=== PATIENT | male | born 2000 | race Caucasian/White ===

== ENCOUNTER 2019-12-11 08:42 | Emergency (ER) | payer BC, OTHER ==
[~2019-12-11] VITALS: Ht 185 cm; Wt 107.0 kg
--- NOTE | 2019-12-11 09:51 | Diagnostic Imaging Report ---
EXAMINATION: Right ankle at 9:27 AM INDICATION: Ankle pain 3 views were obtained. There are no prior studies available for comparison. There is a 2.8 x 8.1 cm area of irregularity involving the medial corner of the talar dome. This could be related to osteochondritis dissecans. This could also be a recent osteochondral injury. I would recommend that either CT or MRI be performed for further study. No other fracture or acute bony abnormality is appreciated. The lateral view does show a few small calcific densities posterior to the ankle joint. Whether these are related to the suspected injury to the medial aspect of the talar dome or whether these are small loose bodies is not certain. The Ankle mortise is not widened. There is generalized soft tissue edema about the ankle joint, particularly along its lateral aspect. IMPRESSION: 1. There is a small area of irregularity involving the medial corner of the talar dome. Whether this is secondary to long-standing osteochondritis dissecans or whether this is related to an acute osteochondral injury is not certain. Recommendations as above. 2. There is no acute bony abnormality noted otherwise. Dictated by: Dictated on workstation # [id number]
--- NOTE | 2019-12-11 10:27 | ED Lower Extremity ---
General Chief Complaint: Lower Extremity Stated Complaint: R ANKLE INJ Nursing Triage Note: PT CO OF R ANKLE PAIN STATES ROLLED ANKLE YESTERDAY WHILE PLAYING BASKETBALL. R ANKLE SWOLLEN AND PAINFUL Nursing Sepsis Screen: No Definite Risk Source: patient Exam Limitations: no limitations History of Present Illness Date Seen by Provider: Dec 11, 2019 Time Seen by Provider: 10:14 Initial Comments Here with report of pain to the right ankle after playing basketball. He had gone up for a rebound and came down on somebody else's foot. He felt his foot roll medially and felt and heard a pop. States the ankle swollen immediately. Has had pain and swelling since. Denies other injury or concern. Onset: yesterday Severity: moderate Pain/Injury Location: right ankle Method of Injury: sports injury, twisted Modifying Factors: Improves With Immobilization; Worse With Movement Allergies and Home Medications Allergies Coded Allergies: Penicillins (Verified Allergy, Unknown, 12/11/19) Home Medications No Active Prescriptions or Reported Meds Patient Home Medication List Home Medication List Reviewed: Yes Review of Systems Constitutional: see HPI; No chills, No fever Respiratory: no symptoms reported Cardiovascular: no symptoms reported Musculoskeletal: see HPI, joint pain, joint swelling Skin: no symptoms reported Past Mtulfgw-Jzsgat-Wfxyvq Hx Past Med/Social Hx: Reviewed Nursing Past Med/Soc Hx Patient Social History Alcohol Use: Denies Use Recreational Drug Use: No Smoking Status: Never a Smoker Recent Foreign Travel: No Contact w/Someone Who Travel: No Recent Infectious Disease Expo: No Recent Hopitalizations: No Physical Abuse: No Sexual Abuse: No Seasonal Allergies Seasonal Allergies: No Past Medical History Surgeries: No Respiratory: No Cardiac: No Neurological: No Genitourinary: No Gastrointestinal: No Musculoskeletal: No Endocrine: No HEENT: No Cancer: No Psychosocial: No Integumentary: No Family Medical History Reviewed Nursing Family Hx Physical Exam Vital Signs Vital Signs - First Documented 12/11/19 09:00 Temp 36.8 Pulse 85 Resp 18 B/P (MAP) 135/85 (102) Pulse Ox 98 Capillary Refill : Less Than 3 Seconds Height, Weight, BMI Height: '" Weight: lbs. oz. kg; 31.00 BMI Method: General Appearance: WD/WN, no apparent distress Cardiovascular: regular rate, rhythm, no murmur Respiratory: lungs clear, normal breath sounds Ankles: right ankle limited range of motion, right ankle pain (posterior medial and lateral malleolus and in the area of the mortise.), right ankle soft tissue tenderness, right ankle swelling Feet: bilateral foot non-tender, bilateral foot normal inspection, bilateral foot normal range of motion Neurologic/Psychiatric: alert, oriented x 3 Skin: normal color, warm/dry Progress/Results/Core Measures Results/Orders My Orders Orders - ZAIRA SPAIN MD Ankle, Right, 3 Views (12/11/19 09:13) Ct Extremity Lower Right Wo (12/11/19 10:21) Vital Signs/I&O 12/11/19 09:00 Temp 36.8 Pulse 85 Resp 18 B/P (MAP) 135/85 (102) Pulse Ox 98 Blood Pressure Mean: 102 Progress Progress Note : Progress Note Seen and evaluated. X-ray ordered and done. Radiology is recommending CT scan of the ankle due to talor deformity. This was discussed with the patient who agrees. CT ordered. Monitor patient. 1123: CT does not show acute fracture. Findings concerns discussed with the patient. We will use Griffin wrap, walking boot and he has his own crutches. He will continue ibuprofen and Tylenol at home. Ice packs as needed. Discharged home with return precautions. Patient verbalize understanding instructions and agreement with plan. Diagnostic Imaging Diagonstic Imaging: Xray Plain Films/CT/US/NM/MRI: chest Comments [facility]. [place], [place] NAME: HECTORDESTIN D [facility] REC#: [id number] PT STATUS: REG ER : 2000 PHYSICIAN: ZAIRA SPAIN MD ADMIT DATE: 12/11/19/ER Draft Date of Exam:12/11/19 ANKLE, RIGHT, 3 VIEWS EXAMINATION: Right ankle at 9:27 AM INDICATION: Ankle pain 3 views were obtained. There are no prior studies available for comparison. There is a 2.8 x 8.1 cm area of irregularity involving the medial corner of the talar dome. This could be related to osteochondritis dissecans. This could also be a recent osteochondral injury. I would recommend that either CT or MRI be performed for further study. No other fracture or acute bony abnormality is appreciated. The lateral view does show a few small calcific densities posterior to the ankle joint. Whether these are related to the suspected injury to the medial aspect of the talar dome or whether these are small loose bodies is not certain. Ankle mortise is not widened. There is generalized soft tissue edema about the ankle joint, particularly along its lateral aspect. IMPRESSION: 1. There is a small area of irregularity involving the medial corner of the talar dome. Whether this is secondary to long-standing osteochondritis dissecans or whether this is related to an acute osteochondral injury is not certain. Recommendations as above. 2. There is no acute bony abnormality noted otherwise. Dictated on workstation # [id number] Dict: 12/11/19 0940 Trans: 12/11/19 0950 [facility] [id number] Interpreted by: ROB LUI MD Electronically signed by: Deandragonscorry Imaging: CT Plain Films/CT/US/NM/MRI: other Comments [place], [place] NAME: DESTIN YOUNG [facility] REC#: [id number] PT STATUS: REG ER : 2000 PHYSICIAN: ZAIRA SPAIN MD ADMIT DATE: 12/11/19/ER Signed Date of Exam:12/11/19 CT EXTREMITY LOWER RIGHT WO PROCEDURE: CT right lower extremity without contrast. TECHNIQUE: Axially acquired CT was obtained through the right lower extremity without intravenous contrast. Coronal and sagittal reformations were also performed. Auto Exposure Controls were utilized during the CT exam to meet ALARA standards for radiation dose reduction. INDICATION: Right ankle while playing basketball. Right ankle pain and swelling. COMPARISON: Right ankle radiograph performed earlier the same date. FINDINGS: No acute fracture or dislocation is seen in the right ankle. A focal cortical irregularity is seen in the lateral and medial aspect of the talar dome, likely representing osteochondral defects. There is normal alignment of the ankle mortise. Multiple small calcified bodies are present in the left ankle joint. A small joint effusion is present. There is a moderate amount of soft tissue edema and swelling in the lateral aspect of the right ankle. IMPRESSION: 1. No acute fracture or dislocation is seen in the right ankle. 2. Cortical irregularities along the medial and lateral aspect of the right talus. These are suggestive of osteochondritis dissecans. 3. Multiple loose bodies within the right ankle joint. A small joint effusion is present. 4. Moderate soft tissue swelling along the lateral aspect of the right ankle. Consider MRI of the right ankle to further evaluate for soft tissue injury. Dictated by: Dictated on workstation # [id number] Dict: 12/11/19 1100 Trans: 12/11/19 1109 [facility] [id number] Interpreted by: PORTER KILLIAN DO Electronically signed by: PORTER KILLIAN DO 12/11/19 1109 Departure Impression Primary Impression: Severe ankle sprain Qualified Codes: S93.401A - Sprain of unspecified ligament of right ankle, initial encounter Disposition: HOME, SELF-CARE Condition: Stable Departure-Patient Inst. Decision time for Depature: 11:24 Referrals: NO,LOCAL PHYSICIAN (PCP) Primary Care Physician MIRA THOMAS MD Patient Instructions: Ankle Sprain (DC) Add. Discharge Instructions: All discharge instructions reviewed with patient and/or family. Voiced understanding. You may take ibuprofen 800 mg every 8 hours as needed for pain. You may also take Tylenol/acetaminophen 1000 mg every 8 hours as needed for pain. Follow-up with [facility] for the orthopedist listed for recheck and further evaluation if not improved. Use ice packs to areas of concern 20 minutes per hour over the next one to 2 days as needed to reduce swelling. Use Griffin wrap and elevation to reduce swelling. Use boot at all times when moving about the next several days and then as needed. Use crutches over the next several days and then as needed. Return for worse pain, swelling, weakness, numbness or other concerns as needed. Scripts No Active Prescriptions or Reported Meds ZAIRA SPAIN MD Dec 11, 2019 10:27
--- NOTE | 2019-12-11 11:11 | Diagnostic Imaging Report ---
PROCEDURE: CT right lower extremity without contrast. TECHNIQUE: Axially acquired CT was obtained through the right lower extremity without intravenous contrast. Coronal and sagittal reformations were also performed. Auto Exposure Controls were utilized during the CT exam to meet ALARA standards for radiation dose reduction. INDICATION: Right ankle while playing basketball. Right ankle pain and swelling. COMPARISON: Right ankle radiograph performed earlier the same date. FINDINGS: No acute fracture or dislocation is seen in the right ankle. A focal cortical irregularity is seen in the lateral and medial aspect of the talar dome, likely representing osteochondral defects. There is normal alignment of the ankle mortise. Multiple small calcified bodies are present in the left ankle joint. A small joint effusion is present. There is a moderate amount of soft tissue edema and swelling in the lateral aspect of the right ankle. IMPRESSION: 1. No acute fracture or dislocation is seen in the right ankle. 2. Cortical irregularities along the medial and lateral aspect of the right talus. These are suggestive of osteochondritis dissecans. 3. Multiple loose bodies within the right ankle joint. A small joint effusion is present. 4. Moderate soft tissue swelling along the lateral aspect of the right ankle. Consider MRI of the right ankle to further evaluate for soft tissue injury. Dictated by: Dictated on workstation # [id number]
[2019-12-11 11:34] VITALS: BP 135/85
== END 2019-12-11 11:34 | disposition home or self-care (01) ==
LOC: ER 08:44
DX: S93.401A Sprain of unspecified ligament of right ankle, initial encounter (principal); Z88.0 Allergy status to penicillin; X50.1XXA Overexertion from prolonged static or awkward postures, initial encounter; Y93.67 Activity, basketball
CPT/HCPCS: 73610; 73700